=== PATIENT | male | born 1980 | race Caucasian/White ===

== ENCOUNTER 2017-03-11 22:39 | Emergency (ER) | payer OTHER ==
[~2017-03-11] VITALS: Ht 162.6 cm; Wt 72.6 kg
[~2017-03-11 22:39] MED LIST: AMOX500 PO; CEPH500 PO; CODGUAEL PO; CYCL10 PO; Ciprodex Otic7.5 ML LEFTEAR; GUAI200 PO; HYDACE5 PO; IBUP600 PO; LORA2 PO; NAPR500 PO; Norco 5-325 Ta1 EACH PO; OMEP20ER PO; PENVK500 PO; PRED20 PO; PSEU30 PO; RXCODGUASY PO; RXLORA1 PO; SULTRIDS PO; Zofran Odt4 MG SL
[2017-03-11] MEDS ORDERED: CEPH500 PO (23:40)
[2017-03-11] MEDS ORDERED: Mupirocin22 GM TOP (23:40)
== END 2017-03-11 23:46 | disposition home or self-care (01) ==
LOC: ER 22:39
DX: T81.33XA Disruption of traumatic injury wound repair, initial encounter (principal); F17.200 Nicotine dependence, unspecified, uncomplicated
CPT/HCPCS: 99282